=== PATIENT | male | born 1975 | race Caucasian/White ===

== ENCOUNTER 2024-02-19 18:47 | Emergency (ER) | payer OTHER ==
[2024-02-19 19:11] VITALS: TEMP 98.3
[2024-02-19 19:28] VITALS: RESP 18
[2024-02-19] MEDS: KETOROLAC 15 MG/ML 1 ML VIAL IM STA (19:58)
--- NOTE | 2024-02-19 20:15 | XR ---
EXAMINATION TYPE: XR ankle complete LT, XR foot complete LT DATE OF EXAM: 02/19/2024 CLINICAL HISTORY: fall pain after injury TECHNIQUE: Frontal, lateral and oblique images of the left ankle and foot are obtained. COMPARISON: None. FINDINGS: There is no acute fracture/dislocation evident in the left ankle. The ankle mortise appea rs within normal limits. Mild to moderate diffuse soft tissue swelling is present. There is no acute fracture or dislocation evident in the left foot. The joint spaces in the left foot are preserved. A ccessory ossicle near the lateral base of the cuboid is present. IMPRESSION: [id number] diffuse soft tissue swelling at the level of the left ankle. There is no acute fracture or dislocation in the left ankle or foot.
--- NOTE | 2024-02-19 20:35 | ED ---
Lower Extremity Injury HPI - General Chief Complaint: Extremity Injury, Lower Stated Complaint: fall from 24ft ladder Time Seen by Provider: 02/19/24 19:17 Source: patient Mode of arrival: ambulatory Limitations: no limitations - History of Present Illness Initial Comments: 48-year-old male presenting with chief complaint of left ankle pain and swelling. Patient was using a ladder, he forgot to lock the ladder resulting in it sliding down and collapsing. The patient was able to jump and land on his feet. He did not hit his head. He did not pass out and he does not take blood thinners. He is having significant pain and swelling to the left ankle. He also has some bruising. No other injuries or complaints. - Related Data Allergies Allergy/AdvReac Type Severity Reaction Status Date / Time No Known Allergies Allergy Verified 02/19/24 19:11 Review of Systems ROS Statement: Those systems with pertinent positive or pertinent negative responses have been documented in the HPI. ROS Other: All systems not noted in ROS Statement are negative. Past Medical History Past Medical History: No Reported History History of Any Multi-Drug Resistant Organisms: None Reported Past Surgical History: No Surgical Hx Reported Past Alcohol Use History: Abuse General Exam Limitations: no limitations General appearance: alert, in no apparent distress Head exam: Present: atraumatic, normocephalic Eye exam: Present: normal appearance, EOMI Neck exam: Present: normal inspection. Absent: meningismus Respiratory exam: Absent: respiratory distress Cardiovascular Exam: Present: regular rate Left Ankle exam: Present: tenderness, swelling, ecchymosis. Absent: full ROM Neurovascular tendon exam: Present: no vascular compromise Neurological exam: Present: alert, oriented X3 Psychiatric exam: Present: normal affect, normal mood Skin exam: Present: warm, dry Course Vital Signs 02/19/24 02/19/24 02/19/24 19:09 19:27 21:22 Temperature 98.3 F Pulse Rate 93 86 80 Respiratory 20 18 18 Rate Blood Pressure 137/63 128/91 146/72 O2 Sat by Pulse 98 97 97 Oximetry Medical Decision Making - Medical Decision Making Was pt. sent in by a medical professional or institution (, PA, FACILITIES OPERATOR, urgent care, hospital, or [facility]...) When possible be specific @ -No Did you speak to anyone other than the patient for history (EMS, parent, family, police, friend...)? What history was obtained from this source @ -No Did you review nursing and triage notes (agree or disagree)? Why? @ -I reviewed and agree with nursing and triage notes Were old charts reviewed (outside hosp., previous admission, EMS record, old EKG, old radiological studies, urgent care reports/EKG's, [facility] records)? Report findings @ -No old charts were reviewed Differential Diagnosis (chest pain, altered mental status, abdominal pain women, abdominal pain men, vaginal bleeding, weakness, fever, dyspnea, syncope, headache, dizziness, GI bleed, back pain, seizure, CVA, palpatations, mental health, musculoskeletal)? @ -Differential Musculoskeletal Muscular strain, contusion, ligament sprain, fracture, arthritis, septic arthritis, bursitis, cellulitis, muscle spasm, nerve compression, DVT, arterial occlusion, herpes zoster, electrolyte abnormality, tumor.... This is not meant to be in all inclusive list EKG interpreted by me (3pts min.). @ -As above X-rays interpreted by me (1pt min.). @ -X-rays show mild to moderate diffuse soft tissue swelling at the level of the left ankle. There is no acute fracture or dislocation in the left ankle or foot CT interpreted by me (1pt min.). @ -None done U/S interpreted by me (1pt. min.). @ -None done What testing was considered but not performed or refused? (CT, X-rays, U/S, labs)? Why? @ -None What meds were considered but not given or refused? Why? @ -None Did you discuss the management of the patient with other professionals (silke falk i.e. , PA, FACILITIES OPERATOR, lab, RT, psych nurse, social work therapist, hospital clerk, teacher, air support control officer, child welfare caseworker)? Give summary @ -No Was smoking cessation discussed for >3mins.? @ -No Was critical care preformed (if so, how long)? @ -No Were there social determinants of health that impacted care today? How? (Homelessness, low income, unemployed, alcoholism, drug addiction, transportation, low edu. Level, literacy, decrease access to med. care, assisted, rehab)? @ -No Was there de-escalation of care discussed even if they declined (Discuss DNR or withdrawal of care, Hospice)? DNR status @ -No What co-morbidities impacted this encounter? (DM, HTN, Smoking, COPD, CAD, Cancer, CVA, ARF, Chemo, Hep., AIDS, mental health diagnosis, sleep apnea, morbid obesity)? @ -None Was patient admitted / discharged? Hospital course, mention meds given and route, prescriptions, significant lab abnormalities, going to OR and other pertinent info. @ -48-year-old male presenting with chief complaint of left ankle injury. He admits to pain swelling and bruising. X-rays negative for fracture or dislocation. He is educated on today's findings and supportive management for ankle sprain. Provided with brace and crutches. Discharged home. Follow-up with PCP. Report back to ER with any new or worsening symptoms. Discussed return parameters and answered all questions. Patient conveyed verbal unders tanding and agreed to the plan. I discussed this case in detail with my attending Dr. Yost Undiagnosed new problem with uncertain prognosis? @ -No Drug Therapy requiring intensive monitoring for toxicity (Heparin, Nitro, Insulin, Cardizem)? @ -No Were any procedures done? @ -No Diagnosis/symptom? @ -Ankle sprain Acute, or Chronic, or Acute on Chronic? @ -Acute Uncomplicated (without systemic symptoms) or Complicated (systemic symptoms)? @ -Uncomplicated Side effects of treatment? @ -No Exacerbation, Progression, or Severe Exacerbation? @ -No Poses a threat to life or bodily function? How? (Chest pain, [place], [place], pneumonia, PE, COPD, DKA, ARF, appy, cholecystitis, CVA, Diverticulitis, Homicidal, Suicidal, threat to staff... and all critical care pts) @ -No Disposition Clinical Impression: Ankle sprain Disposition: HOME SELF-CARE Condition: Good Instructions (If sedation given, give patient instructions): Ankle Sprain (ED) Additional Instructions: Follow-up with PCP and orthopedics. Report back to ER with any new or worsening symptoms. Rest, ice, compress, elevate the ankle. Is patient prescribed a controlled substance at d/c from ED?: No Referrals: None,Stated [Primary Care Provider] - 1-2 days Tra Caro MD [STAFF PHYSICIAN] - 1-2 days Kofi Bryant MD [Medical Doctor] - 1-2 days Time of Disposition: 20:34
[2024-02-19 21:23] VITALS: BP 146/72; PULSE 80
== END 2024-02-19 21:23 | disposition home or self-care (01) ==
LOC: EC 18:47
DX: S93.402A Sprain of unspecified ligament of left ankle, initial encounter (principal); W11.XXXA Fall on and from ladder, initial encounter
CPT/HCPCS: 73610; 73630; 99283; 96372; J1885